=== PATIENT | female | born 2000 ===

== ENCOUNTER 2021-11-19 12:38 | Outpatient (CLI) | payer BC | END 2021-11-19 12:39 | disposition home or self-care (01) | LOC: ULT 12:38 | PROVIDERS: ATTEND Urology | DX: N20.0 Calculus of kidney (principal) | CPT/HCPCS: 76770 ==

== ENCOUNTER 2021-12-04 11:27 | Outpatient (CLI) | payer BC ==
[2021-12-04] MEDS ORDERED: Iopamidol 370 76% 100 ML VIAL ONE (15:02)
== END 2021-12-04 11:28 | disposition home or self-care (01) ==
LOC: CT 11:27
PROVIDERS: ATTEND Urology
DX: N20.0 Calculus of kidney (principal); N89.8 Other specified noninflammatory disorders of vagina
CPT/HCPCS: 74178; Q9967